=== PATIENT | male | born 1955 | race Caucasian/White ===

== ENCOUNTER → 2021-10-25 | Outpatient (CLI) | payer BC ==
[~2021-10-25] VITALS: Ht 182.9 cm; Wt 127.0 kg
== END ==
LOC: OPSV 13:50
DX: E61.1 Iron deficiency (principal)
CPT/HCPCS: 96365; J1439; J7030

== ENCOUNTER → 2021-11-01 | Outpatient (CLI) | payer BC ==
[~2021-11-01] VITALS: Ht 182.9 cm; Wt 127.0 kg
== END ==
LOC: OPSV 07:43
DX: E61.1 Iron deficiency (principal)
CPT/HCPCS: 96365; J1439; J7030